=== PATIENT | female | born 2000 | race Caucasian/White ===

== ENCOUNTER 2019-01-12 21:34 | Emergency (ER) | payer MEDICAID ==
[~2019-01-12] VITALS: Ht 165.1 cm; Wt 81.6 kg
[2019-01-12 21:51] VITALS: BP 110/71
--- NOTE | 2019-01-12 21:55 | NUR ---
TO LOBBY A/W BED AMBULATORY WITH MOTHER
--- NOTE | 2019-01-13 02:33 | NUR ---
CALLED PT IN LOBBY. NO RESPONSE.
--- NOTE | 2019-01-13 02:33 | NUR ---
PATIENT LEFT WITHOUT BEING SEEN BY DR. MONTENEGRO . NO FURTHER CARE PROVIDED FOR PATIENT.
--- NOTE | 2019-01-13 02:38 | NUR ---
PATIENT CALLED FOR TTHE SECOND , NO RESPONSE
--- NOTE | 2019-01-13 02:43 | NUR ---
CALLED FOR THE THIRD TIME NO RESPONSE
== END 2019-01-13 02:33 | disposition left against medical advice (07) ==
LOC: MED 21:34
DX: M54.5 Low back pain (principal); Z53.21 Procedure and treatment not carried out due to patient leaving prior to being seen by health care provider

== ENCOUNTER 2020-07-11 16:10 | Emergency (ER) | payer MEDICAID ==
[~2020-07-11] VITALS: Ht 165.1 cm; Wt 81.6 kg
[2020-07-11 17:02] VITALS: BP 146/84
--- NOTE | 2020-07-11 17:38 | NUR ---
PATIENT LEFT WITHOUT BEING SEEN BY DR. Elizalde. NO FURTHER CARE PROVIDED FOR PATIENT.
== END 2020-07-11 17:38 | disposition left against medical advice (07) ==
LOC: MED 16:10
DX: R07.0 Pain in throat (principal); Z53.21 Procedure and treatment not carried out due to patient leaving prior to being seen by health care provider

== ENCOUNTER 2021-01-07 21:23 | Emergency (ER) | payer MEDICAID ==
[~2021-01-07] VITALS: Ht 167.6 cm; Wt 82.1 kg
[2021-01-07 21:46] VITALS: BP 128/87
--- NOTE | 2021-01-07 22:21 | NUR ---
PT AMBULATED TO BED 2
--- NOTE | 2021-01-07 22:39 | NUR ---
20/F C/O OF LOWER ABDOMAINAL PAIN AND DISCOMFORT WHICH STARTED 2 DAYS AGO. PT VERBALIZED BLOATEDNESS AND NAUSEA. PT DENIES ANY FEVER, VOMITING, DIARRHEA, DYSURIA. PATIENT REPORTS SUPRAPUBIC TENDERNESS. PATIENT REPORTS URINATING MORE FREQUENTLY, AND HAS A FOUL SMELLING ODOR TO THE URINE. AAOX4. PATIENT FEELS THE PAIN IS MORE OF A DISCOMFORT THAN ACTUAL PAIN. PMH: APPENDECTOMY 2019, ASTHMA NKDA
--- NOTE | 2021-01-07 23:14 | NUR ---
MOVED TO ER BED 3
--- NOTE | 2021-01-07 23:25 | NUR ---
Samuel mo in [facility] - 01/07/21 at 2337 by JUAN Patient being evaluated by physician at bedside.
--- NOTE | 2021-01-07 23:37 | NUR ---
Patient being evaluated by physician at bedside.
[2021-01-08] MEDS ORDERED: MAGNESIUM CITRATE 300 ML BTL PO ONE (02:40)
[2021-01-08 03:00] VITALS: BP 128/87
--- NOTE | 2021-01-08 03:00 | NUR ---
Patient discharged with v/s stable. Written and verbal after care instructions given and explained. Patient verbalized understanding. Ambulatory with steady gait. All questions addressed prior to discharge. Advised to follow up with PMD.
== END 2021-01-08 03:00 | disposition home or self-care (01) ==
LOC: MED 21:23
DX: R10.30 Lower abdominal pain, unspecified (principal); J45.909 Unspecified asthma, uncomplicated
CPT/HCPCS: 74018; 81002; 81025; 99283

== ENCOUNTER 2021-02-14 13:30 | Emergency (ER) | payer MEDICAID ==
[~2021-02-14] VITALS: Ht 165.1 cm; Wt 80.3 kg
[2021-02-14 13:32] VITALS: BP 133/66
[2021-02-14] MEDS ORDERED: IBUPROFEN 600 MG TAB PO ONE (14:05)
--- NOTE | 2021-02-14 14:10 | NUR ---
Note chely in ED - 02/14/21 at 1425 by JOSE Attempted to contact patient in tent; no answer. Unable to obtain EKG and medication administration.
--- NOTE | 2021-02-14 14:30 | NUR ---
Contacted radiology; staff advised patient transported back to tent after XRAY.
--- NOTE | 2021-02-14 14:31 | NUR ---
Attempted to contact patient in tent; no answer at this time. Unable to perform EKG and medication administration.
--- NOTE | 2021-02-14 14:35 | NUR ---
20 y/o F BIB self from home with c/c SOB, cough and chest pain upon waking up this morning. Patient reports SOB, dry cough, and sternal chest pain 8/10, pressure/constant, non-radiating that worsens when coughing. Patient reports taking Tylenol at 1030 with temporary relief. Denies any sickness at home; denies nausea, vomitnig, fever, chills, diarrhea. PMH: Asthma Meds: Denies NKA Sx: Appendectomy 1 year ago
--- NOTE | 2021-02-14 14:35 | NUR ---
Pt ambulated to triage room for EKG.
--- NOTE | 2021-02-14 14:35 | NUR ---
Contacted pt by phone, advised to meet in tent.
[2021-02-14] MEDS ORDERED: IBUP-1842 PO (14:45)
--- NOTE | 2021-02-14 14:55 | NUR ---
unable to find patient for discharge paperwork in tent or car.
--- NOTE | 2021-02-14 15:05 | NUR ---
Patient not found in tent or vehicle outside ER lobby. Attempted to contact via phone with no answer.
--- NOTE | 2021-02-14 15:16 | NUR ---
Attempted to contact patient in tent; no answer. Patient eloped; 2 RN signatures obtained as witness on discharge signature page.
[2021-02-14 15:22] VITALS: BP 133/66
== END 2021-02-14 15:16 | disposition home or self-care (01) ==
LOC: MED 13:30
DX: R07.89 Other chest pain (principal); R06.02 Shortness of breath; J45.909 Unspecified asthma, uncomplicated; Z79.899 Other long term (current) drug therapy
CPT/HCPCS: 71045; 93005; 99283

== ENCOUNTER 2021-03-06 19:06 | Emergency (ER) | payer MEDICAID ==
[~2021-03-06] VITALS: Ht 165.1 cm; Wt 81.2 kg
[~2021-03-06 19:06] MED LIST: IBUP-1842 PO
[2021-03-06 19:55] VITALS: BP 121/71
--- NOTE | 2021-03-06 22:11 | NUR ---
LWBS by Dr. Plunkett
== END 2021-03-06 22:11 | disposition left against medical advice (07) ==
LOC: MED 19:06
DX: M25.531 Pain in right wrist (principal); Z53.21 Procedure and treatment not carried out due to patient leaving prior to being seen by health care provider
CPT/HCPCS: 73090; 99281

== ENCOUNTER 2021-07-02 03:59 | Emergency (ER) | payer MEDICAID ==
[~2021-07-02] VITALS: Ht 165.1 cm; Wt 77.1 kg
[2021-07-02 04:17] VITALS: BP 130/77
--- NOTE | 2021-07-02 04:57 | NUR ---
PT EVALUATED BY DR. SPARKS.
[2021-07-02] MEDS ORDERED: FAMO-90 PO (05:00)
[2021-07-02] MEDS ORDERED: PRED20TA6 PO (05:00)
[2021-07-02] MEDS ORDERED: methylPREDNISolone SS 125 MG/2 ML VIAL IM ONE (05:00)
[2021-07-02] MEDS ORDERED: FAMOTIDINE 20 MG TAB PO ONE (05:00)
--- NOTE | 2021-07-02 06:01 | NUR ---
PT CLEARED FOR DISCHARGE BY DR. SPARKS. PT UNABLE TO BE FOUND IN LOBBY OR OUTSIDE. THIS RN CALLED PT PERSONAL CELLPHONE AND PT REPORTED "I JUST LEFT." PT LEFT FACILITY WITHOUT DISCHARGE INSTRUCTIONS.
== END 2021-07-02 06:01 | disposition home or self-care (01) ==
LOC: MED 03:59
DX: R51.9 Headache, unspecified (principal); J45.909 Unspecified asthma, uncomplicated; G43.909 Migraine, unspecified, not intractable, without status migrainosus; Z79.899 Other long term (current) drug therapy
CPT/HCPCS: 96372; 99283; J2930; Q0163

== ENCOUNTER 2021-07-04 11:10 | Emergency (ER) | payer MEDICAID ==
[~2021-07-04] VITALS: Ht 165.1 cm; Wt 79.8 kg
[~2021-07-04 11:10] MED LIST changes: +FAMO-90 PO; +PRED20TA6 PO
[2021-07-04 11:27] VITALS: BP 125/80
[2021-07-04] MEDS ORDERED: PRED20TA5 PO (11:59)
[2021-07-04] MEDS ORDERED: methylPREDNISolone SS 125 MG/2 ML VIAL ONE (12:54)
[2021-07-04] MEDS ORDERED: WATER STERILE 10 ML MC ONE (12:54)
[2021-07-04] MEDS ORDERED: methylPREDNISolone SS 125 MG in WATER STERILE 2 ML IM ONE (12:55)
[2021-07-04 13:12] VITALS: BP 125/80
--- NOTE | 2021-07-04 13:12 | NUR ---
Patient discharged with v/s stable. Written and verbal after care instructions given FOR RASH and explained. Patient alert, oriented and verbalized understanding of instructions. Ambulatory with steady gait. All questions addressed prior to discharge. ID band removed. Patient advised to follow up with PMD. Rx of PREDNISONE given. Patient educated on indication of medication including possible reaction and side effects. Opportunity to ask questions provided and answered.
== END 2021-07-04 13:12 | disposition home or self-care (01) ==
LOC: MED 11:10
DX: R21 Rash and other nonspecific skin eruption (principal); J45.909 Unspecified asthma, uncomplicated; Z79.899 Other long term (current) drug therapy; Z90.49 Acquired absence of other specified parts of digestive tract
CPT/HCPCS: 96372; 99283; J2930